=== PATIENT | male | born 1955 | race Caucasian/White ===

== ENCOUNTER → 2018-02-02 12:57 | Outpatient (CLI) | payer OTHER, SELFPAY ==
--- NOTE | 2018-02-02 12:57 | DT_ITS ---
This patient was seen during an EMR downtime January 29, 2018 - February 05, 2018. This patient may have a combination of paper and electronic documentation or all paper documentation. All documentation is viewable within the e-chart portion of [email or web address] for each patient visit.
--- NOTE | 2018-02-02 13:02 | VDLE_ITS ---
Reason For Study: pain RIGHT LEFT CFV is compressible, spontaneous, phasic, GSV is normal. competent and demonstrates normal CFV is compressible, spontaneous, phasic, augmentation. competent, and demonstrates normal Procedure augmentation. Exam performed in department. FV is compressible, spontaneous, phasic, The exam was diagnostic. competent and demonstrates normal A preliminary report was called and/or faxed augmentation. to Dr. Elizabeth Garcia. POP V is compressible, spontaneous, phasic, competent and demonstrates normal augmentation. T/P Trunk is compressible. PTV is compressible. LT PerV is compressible. Interpretation Summary Deep veins of the left lower extremity are patent and compressible segmentally. There is no evidence of left lower extremity deep vein thrombosis. Valvular competence appears intact within the proximal deep venous system on the left . The left greater saphenous vein appears patent and compressible segmentally. Ordering Physician: John Garcia Performed By: Mike Abreu RVRajesh
== END ==
PROVIDERS: Family Provider Family Medicine; PCP Family Medicine; Visit Provider Family Medicine
DX: M79.662 Pain in left lower leg (principal)
CPT/HCPCS: 93971

== ENCOUNTER → 2018-10-15 09:53 | Outpatient (CLI) | payer OTHER, SELFPAY ==
[2018-10-15 13:09] LABS: Anion Gap 7 (5-15); BUN 22 mg/dL (7-18); BUN/Creat Ratio 20.2 RATIO (10-20); Calcium,Total 8.7 mg/dL (8.5-10.1); Chloride 111 mmol/L (98-107); Cholesterol 207 mg/dL (200); Creatinine, Serum 1.09 mg/dL (0.70-1.30); EST Glomerular Filtration Rate 73 mL/min (>60); Est Glom Filt Rate - Afr Amer 88 mL/min (>60); Glucose 105 mg/dL (74-106); High Density Lipoprotein 35 mg/dL; PSA,Total - Annual Screen 2.13 ng/mL (0.00-4.00); Potassium 3.6 mmol/L (3.5-5.1); Sodium Level 141 mmol/L (136-145); Triglycerides 168 mg/dL; Very Low Density Lipoprotein 34 mg/dL (5-40)
== END ==
PROVIDERS: Family Provider Family Medicine; PCP Family Medicine; Referring Provider Family Medicine; Visit Provider Family Medicine
DX: Z13.1 Encounter for screening for diabetes mellitus (principal); Z12.5 Encounter for screening for malignant neoplasm of prostate; Z13.220 Encounter for screening for lipoid disorders
CPT/HCPCS: 36415; 80048; 80061; 84153; G0103

== ENCOUNTER → 2018-11-08 11:19 | Outpatient (CLI) | payer OTHER, SELFPAY ==
--- NOTE | 2018-11-08 14:07 | STRESSREP ---
Stress Test Report Exercise stress test. 63-year-old man with a history of chest pain. Stress protocol: Resting EKG demonstrates sinus bradycardia with a rate of 49 bpm normal intervals are noted. The patient exercised according to regular Cj protocol for total duration of 12 minutes completing stage IV of the Jc protocol the maximum heart rate attained was 150 bpm which was 95% of the maximum predicted heart rate the maximum workload was 13.7 metabolic equivalents. The patient maintained sinus rhythm throughout the recording. At rest and during peak exercise there were no ST or T wave changes noted to suggest ischemia. No clinical angina was noted. The resting blood pressure was 128/90 mmHg with a peak blood pressure 170/78 mmHg. The rate pressure product was 25,100. Conclusion: Exercise stress test with no EKG criteria for ischemia at a high workload Excellent functional capacity. No arrhythmias noted.
== END ==
PROVIDERS: Family Provider Family Medicine; PCP Family Medicine; Referring Provider Family Medicine; Visit Provider Family Medicine
DX: R07.89 Other chest pain (principal)
CPT/HCPCS: 93017

== ENCOUNTER 2020-03-07 11:55 | Emergency (ER) | payer OTHER, SELFPAY ==
[2020-03-07 11:57] VITALS: BP 129/87; PULSE 74; RESP 16; TEMP 37.1; O2SAT 91; BMI 29.7
--- NOTE | 2020-03-07 12:15 | RAD_ITS ---
STUDY: X-RAY CHEST REASON FOR EXAM: Male, 64 years old. Left side rib/chest pain TECHNIQUE: Single AP portable view of the chest. COMPARISON: None. FINDINGS: The lungs are underexpanded. Interstitial markings are minimally prominent in the lung bases. There is no demonstrated pleural abnormality. There is mild cardiac enlargement. Normal mediastinum and tracy. Normal visualized pulmonary arteries. Normal visualized aortic arch and descending thoracic aorta. There are diffuse degenerative changes of the visualized thoracic spine. Normal visualized ribs, clavicles, and shoulders. There is no demonstrated abnormality of the visualized soft tissue structures of the upper abdomen. RAD/Chest 1 View (Portable) IMPRESSION: Minimal lower lobe atelectasis, mild cardiomegaly underexpansion of the lungs. Electronically Signed: Sarahi Hedrick MD at 13:03 EDT Tel , Service support ,
--- NOTE | 2020-03-07 12:15 | EKG12_ITS ---
Test Reason : Blood Pressure : / mmHG Vent. Rate : 068 BPM Atrial Rate : 068 BPM P-R Int : 192 ms QRS Dur : 098 ms QT Int : 402 ms P-R-T Axes : 029 -06 001 degrees QTc Int : 427 ms Normal sinus rhythm Normal ECG Confirmed by CARLO CONNORS, AKI ([id number]), legal editor VETO ACE ([id number]) on 03/09/2020 1:05:34 PM Referred By: Confirmed By:AKI MATOS MD
[2020-03-07 12:24] LABS: Absolute Lymphocyte Count 1.71 X10^3/uL (0.83-4.51); Absolute Neutrophil Count 7.5 X10^3/uL (2.0-7.7); Basophil# 0.03 X10^3/uL; Basophil% 0.3 % (0-1); Eosinophil# 0.03 X10^3/uL; Eosinophils% 0.3 % (0-5); Hematocrit 47.1 % (40-54); Hemoglobin 15.6 g/dL (13.0-16.5); Lymphocyte # 1.71 X10^3/ul (4.0); Lymphocyte % 16.4 % (19-41); Mean Corp Hgb Conc 33.1 g/dL (32-36); Mean Corpuscular Hgb 30.4 pg (27.0-32.0); Mean Corpuscular Volume 91.8 fL (80-94); Mean Platelet Vol. 9.4 fl (6.2-12.0); Monocyte# 1.09 X10^3/uL; Monocyte% 10.4 % (0-10); NRBC Flagged by Analyzer 0 % (0-5); Neutrophil % 71.8 % (47-70); Platelet Count 251 K/mm3 (150-450); RBC Distribution Width CV 12.4 % (11.6-14.6); RBC Distribution Width SD 40.9 fl (35.1-43.9); Red Blood Count 5.13 M/mm3 (4.6-6.2); White Blood Count 10.4 K/mm3 (4.4-11.0)
--- NOTE | 2020-03-07 12:42 | ED.DCSUM_ITS ---
- ER Visit Summary Date of Service: 03/07/20 Chief Complaint: Left lower chest pain History of Present Illness: The patient is a [address] Guadarrama. No personal history of DVT. Does have a family history of a DVT. Reports that over the February 28 he went on a 5-hour car ride to [place]. He denies ankle swelling or calf pain. Patient reports that he has pain in the lower left chest and left flank that began yesterday. Is gradually gotten worse. Is a sharp, aching pain is 7-10 at worst and 5-10 currently. Is worsened by laying down. Is relieved by sitting or standing. Reports that his left shoulder was aching all night as well. He states that that felt as though he had slept on it wrong. States that it was increased with movement. Patient also complains of subjective fever. He denies any shortness of breath or cough. No nausea, vomiting, or diarrhea. No dysuria, frequency, or hematuria. Physical Examination: Vitals: Stable. Afebrile. General: Well-nourished and well-developed. Head: Normocephalic atraumatic. Neck: Supple, no lymphadenopathy. No JVD. Nontender. Cardiovascular: Regular rate and rhythm. No murmurs. Respiratory: No respiratory distress. Clear to auscultation bilaterally. Abdominal: Soft, nontender, nondistended, normal bowel sounds. No guarding, rebound, or peritoneal signs. Back: Nontender. Extremities: Nontender, no edema. Skin: Normal color, no rash. Neurologic: Alert and oriented ?3. Cranial nerves II through XII are intact. Normal strength and sensation. Psych: Normal affect. Test Results: EKG is sinus at 68 with a Q wave in a T wave inversion in lead III. There is no old EKG for comparison. CBC shows segmented for 70, and lymphocytes of 16. Chem-7 shows a potassium of 3.3 and glucose of 124. LFTs show total bili of 1.2, alk phos 125. Lipase is 65. Troponin is negative. C OVID is negative. Clinical Impression(s) from Imaging Studies Chest X-Ray 03/07/20 12:15 IMPRESSION: Minimal lower lobe atelectasis, mild cardiomegaly underexpansion of the lungs. Electronically Signed: Sarahi Hedrick MD at 13:03 EDT Tel , Service support , Chest CTA 03/07/20 13:04 IMPRESSION: 1. No central or segmental pulmonary embolism. 2. Left more than right basilar atelectasis. Given asymmetry, a left basilar pneumonitis is also possible. Electronically Signed: Ananth Herrera MD ([place]) at 14:23 EDT , Service support , Emergency Department Course and Treatment: Patient had an IV placed. Is given Toradol, morphine and Zofran IV. He is resting more comfortably. He was also given an incentive spirometer. Treatment Plan: Patient is instructed to clean his CPAP. Patient will be discharged with instructions to follow-up with Dr. Rojas in a week if not improving. Return to the emergency department for any worsening symptoms. Disposition: To home in improved and stable condition. Impression: 1. Pneumonitis left lower lobe. 2. Atelectasis. 3. Obstructive sleep apnea on CPAP. This note was generated with [employer] dictation software. It may contain incorrect words, spelling, and punctuation that were not noted in review of the chart prior to signing ED Disposition - Plan for ED Patient: Instructions: ED Atelectasis Prescriptions: Naproxen [Naprosyn] 500 mg PO BID #20 tab Prescription Printed Referrals: Jc Rojas MD [STAFF PHYSICIAN] - 1 Week if not improving John Guadarrama MD [Primary Care Provider] - 3-5 Days
[2020-03-07] MEDS: Morphine 4 MG/ML Syringe IV ×2 (12:44→14:04)
[2020-03-07] MEDS: 0.9% Normal Saline 1,000 ML 1000 ML IV (12:44)
[2020-03-07] MEDS: Ondansetron 4 MG/2 ML Vial IV (12:45)
[2020-03-07 13:03] LABS: D-Dimer Quantitative (DVT/PE) 0.87 FEU/ug/m (0.27-0.49)
--- NOTE | 2020-03-07 13:04 | CT_ITS ---
STUDY: CTA CHEST REASON FOR EXAM: Male, 64 years old. PT STATED LEFT SIDE RIB PAIN RADIATION DOSAGE (If Supplied By Facility): CTDIvol = ( 14.92 ) mGy, DLP = ( 537.50 ) mGycm TECHNIQUE: The examination was performed with the intravenous administration of 100ML ISOVUE 370. Post-processing of the angiographic images was performed, with multiplanar reformation and 3D reconstruction. Individualized dose optimization techniques were used for this CT. COMPARISON: None. FINDINGS: Normal enhancement of the main pulmonary artery and right and left pulmonary arteries. Normal enhancement of the bilateral peripheral pulmonary arteries. There is no demonstrated pulmonary embolism. There is atherosclerotic calcification of the aortic arch with tortuosity. Pulmonary vascular There is no demonstrated aortic dissection. Normal heart and pericardium. Normal mediastinum. Normal hilar regions. Normal visualized trachea and bronchi. The lungs are under expanded. There are bandlike parenchymal changes most consistent with atelectasis of the bilateral lungs, left more than right. Normal pleura. Normal chest wall structures. Normal osseous structures. There is a small hiatal hernia. CT/CTA Chest W/WO Contrast IMPRESSION: 1. No central or segmental pulmonary embolism. 2. Left more than right basilar atelectasis. Given asymmetry, a left basilar pneumonitis is also possible. Electronically Signed: Ananth Herrera MD ([place]) at 14:23 EDT , Service support ,
[2020-03-07 13:38] LABS: ALB/GLOB Ratio 0.8 RATIO (0.9-2.4); AST(SGOT) 19 U/L (15-37); Alanine Aminotransfer ALT/SGPT 30 U/L (16-61); Albumin, Serum 3.4 g/dL (3.2-5.0); Alkaline Phosphatase 125 U/L (45-117); Anion Gap 7 (5-15); BUN 16 mg/dL (7-18); BUN/Creat Ratio 13.7 RATIO (10-20); Calcium,Total 8.6 mg/dL (8.5-10.1); Chloride 106 mmol/L (98-107); Creatinine, Serum 1.17 mg/dL (0.70-1.30); EST Glomerular Filtration Rate 67 mL/min (>60); Est Glom Filt Rate - Afr Amer 81 mL/min (>60); Estimated Creatinine Clearance 72.08 ml/min; Globulin 4.2 g/dL (2.2-4.2); Glucose 124 mg/dL (74-106); Lipase 65 U/L (73-393); Potassium 3.3 mmol/L (3.5-5.1); Protein, Total 7.6 g/dL (6.4-8.2); Sodium Level 140 mmol/L (136-145)
[2020-03-07 14:00] VITALS: BP 130/85; PULSE 67; RESP 16; O2SAT 92
[2020-03-07] MEDS: Ketorolac 15 MG/ML Vial IV (14:55)
[2020-03-07 16:06] LABS: Probe Check PASS; Specimen Processing Control PASS
[2020-03-07 16:27] VITALS: BP 121/77; PULSE 68; RESP 16; O2SAT 97
== END 2020-03-07 16:32 | disposition home or self-care (01) ==
LOC: ED 12:54
PROVIDERS: Emergency Provider Emergency Medicine; PCP Family Medicine
DX: J18.9 Pneumonia, unspecified organism (principal); J98.11 Atelectasis; G47.33 Obstructive sleep apnea (adult) (pediatric); I10 Essential (primary) hypertension; R10.9 Unspecified abdominal pain; R51 Headache; Z79.899 Other long term (current) drug therapy
CPT/HCPCS: 71045; 71275; 80053; 83690; 84484; 85025; 85379; 87635; 93005; 96361; 96374; 96375; 96376; 99285; G2023; J7030; Q9967; A4216; J2405; U0003

== ENCOUNTER → 2020-04-22 08:44 | Outpatient (CLI) | payer OTHER, SELFPAY ==
[2020-04-22 10:33] LABS: ALB/GLOB Ratio 0.9 RATIO (0.9-2.4); AST(SGOT) 22 U/L (15-37); Alanine Aminotransfer ALT/SGPT 33 U/L (16-61); Albumin, Serum 3.5 g/dL (3.2-5.0); Alkaline Phosphatase 102 U/L (45-117); Anion Gap 4 (5-15); BUN 23 mg/dL (7-18); BUN/Creat Ratio 21.1 RATIO (10-20); Calcium,Total 8.8 mg/dL (8.5-10.1); Chloride 108 mmol/L (98-107); Cholesterol 202 mg/dL (200); Creatinine, Serum 1.09 mg/dL (0.70-1.30); EST Glomerular Filtration Rate 72 mL/min (>60); Est Glom Filt Rate - Afr Amer 87 mL/min (>60); Glucose 109 mg/dL (74-106); High Density Lipoprotein 36 mg/dL; PSA,Total - Annual Screen 2.57 ng/mL (0.00-4.00); Potassium 3.7 mmol/L (3.5-5.1); Protein, Total 7.5 g/dL (6.4-8.2); Sodium Level 140 mmol/L (136-145); Triglycerides 163 mg/dL; Very Low Density Lipoprotein 33 mg/dL (5-40)
== END ==
PROVIDERS: PCP Family Medicine; Referring Provider Family Medicine; Visit Provider Family Medicine
DX: I10 Essential (primary) hypertension (principal); Z12.5 Encounter for screening for malignant neoplasm of prostate
CPT/HCPCS: 36415; 80053; 80061; 84153; G0103

== ENCOUNTER 2020-10-29 06:49 | Outpatient (RCR) | payer OTHER, SELFPAY ==
[2020-05-05 07:00] VITALS: BMI 29.7
[2020-10-29] MEDS: COVID-19 VACC, MRNA(PFIZER)/PF 30 MCG/0.3 ML SYRINGE IM (14:05)
[2020-11-19] MEDS: COVID-19 VACC, MRNA(PFIZER)/PF 30 MCG/0.3 ML SYRINGE IM (13:46)
== END 2021-02-02 23:59 ==
LOC: IMMUN 06:49
PROVIDERS: PCP Family Medicine; Referring Provider Family Medicine; Visit Provider Family Medicine
DX: Z23 Encounter for immunization (principal)
CPT/HCPCS: 0001A; 0002A; 91300

== ENCOUNTER → 2020-12-07 08:27 | Outpatient (CLI) | payer OTHER, SELFPAY ==
[2020-05-05 07:00] VITALS: BMI 29.7
--- NOTE | 2020-12-07 08:32 | RAD_ITS ---
STUDY: X-RAY - ESOPHAGUS (BARIUM SWALLOW) WITH FLUOROSCOPY REASON FOR EXAM: Male, 65 years old. DYSPHAGIA TECHNIQUE: 13 view(s) of the esophagus were obtained following swallowing of barium. FLUOROSCOPY TIME (if supplied): (35 seconds) minutes/seconds COMPARISON: None. FINDINGS: There is no demonstrated esophageal foreign body. There is no demonstrated stricture or mucosal abnormality. Normal gastroesophageal junction, without a demonstrated hiatal hernia. There is evidence of a paraesophageal hernia. The patient ingested a 12 mm tablet of barium. The tablet is trapped at the gastroesophageal junction. Normal visualized aortic arch and descending thoracic aorta. Normal visualized pulmonary parenchyma. Normal visualized osseous structures of the thorax. RAD/Esophagus Dual Contrast IMPRESSION: Paraesophageal hernia. The ingested 12 mm tablet of barium is trapped at the gastroesophageal junction. Electronically Signed: Ivan Eduardo MD at 13:51 EDT , Service support ,
== END ==
PROVIDERS: PCP Family Medicine; Referring Provider Internal Medicine Gastroenterology; Visit Provider Internal Medicine Gastroenterology
DX: R13.10 Dysphagia, unspecified (principal)
CPT/HCPCS: 74221

== ENCOUNTER → 2020-12-28 16:21 | Outpatient (CLI) | payer OTHER, SELFPAY ==
[2020-05-05 07:00] VITALS: BMI 29.7
== END ==
PROVIDERS: PCP Family Medicine; Referring Provider Internal Medicine Gastroenterology; Visit Provider Internal Medicine Gastroenterology
DX: Z11.59 Encounter for screening for other viral diseases (principal)
CPT/HCPCS: 87635; C9803; U0002

== ENCOUNTER → 2021-05-22 09:20 | Outpatient (CLI) | payer OTHER, SELFPAY ==
[2021-05-22 09:36] LABS: Absolute Lymphocyte Count 1.78 X10^3/uL (0.83-4.51); Absolute Neutrophil Count 3.1 X10^3/uL (2.0-7.7); Basophil# 0.05 X10^3/uL; Basophil% 0.9 % (0-1); Eosinophil# 0.08 X10^3/uL; Eosinophils% 1.4 % (0-5); Hematocrit 46.9 % (40-54); Hemoglobin 15.3 g/dL (13.0-16.5); Lymphocyte # 1.78 X10^3/ul (0.83-4.51); Lymphocyte % 31.8 % (19-41); Mean Corp Hgb Conc 32.6 g/dL (32-36); Mean Corpuscular Hgb 29.6 pg (27.0-32.0); Mean Corpuscular Volume 90.7 fL (80-94); Mean Platelet Vol. 9.2 fl (6.2-12.0); Monocyte# 0.61 X10^3/uL; Monocyte% 10.9 % (0-10); NRBC Flagged by Analyzer 0 % (0-5); Neutrophil # 3.05 X10^3/uL (2.7-7.7); Neutrophil % 54.6 % (47-70); Platelet Count 246 K/mm3 (150-450); RBC Distribution Width CV 12.8 % (11.6-14.6); RBC Distribution Width SD 42.5 fl (35.1-43.9); Red Blood Count 5.17 M/mm3 (4.6-6.2); White Blood Count 5.6 K/mm3 (4.4-11.0)
[2021-05-22 10:01] LABS: ALB/GLOB Ratio 0.8 RATIO (0.9-2.4); AST(SGOT) 24 U/L (15-37); Alanine Aminotransfer ALT/SGPT 41 U/L (16-61); Albumin, Serum 3.4 g/dL (3.2-5.0); Alkaline Phosphatase 117 U/L (45-117); Anion Gap 4 (5-15); BUN 20 mg/dL (7-18); BUN/Creat Ratio 19.8 RATIO (10-20); Calcium,Total 8.8 mg/dL (8.5-10.1); Chloride 108 mmol/L (98-107); Cholesterol 196 mg/dL (200); Creatinine, Serum 1.01 mg/dL (0.70-1.30); EST Glomerular Filtration Rate 79 mL/min (>60); Est Glom Filt Rate - Afr Amer 95 mL/min (>60); Globulin 4.2 g/dL (2.2-4.2); Glucose 101 mg/dL (74-106); High Density Lipoprotein 41 mg/dL; PSA,Total - Annual Screen 2.65 ng/mL (0.00-4.00); Potassium 3.8 mmol/L (3.5-5.1); Protein, Total 7.6 g/dL (6.4-8.2); Sodium Level 139 mmol/L (136-145); Triglycerides 146 mg/dL; Very Low Density Lipoprotein 29 mg/dL (5-40)
== END ==
PROVIDERS: PCP Family Medicine; Referring Provider Family Medicine; Visit Provider Family Medicine
DX: E78.00 Pure hypercholesterolemia, unspecified (principal); Z12.5 Encounter for screening for malignant neoplasm of prostate
CPT/HCPCS: 36415; 80053; 80061; 84153; 85025; G0103

== ENCOUNTER → 2021-06-09 07:25 | Outpatient (CLI) | payer OTHER, SELFPAY ==
--- NOTE | 2021-06-09 07:29 | ECHOD_ITS ---
Reason For Study: Arrhythmia Procedure This was a 2D Doppler, Color Flow transthoracic echocardiogram. Exam performed in department. Left Ventricle Normal LV size. Left ventricular systolic function is normal. The estimated ejection fraction is 60 %. Stage 1 diastolic dysfunction. No regional wall motion abnormalities noted. Right Ventricle Normal RV size. Normal systolic function. Atria Normal left atrium. Normal right atrium. Mitral Valve Mild focal mitral valve calcification. Mild (1+) eccentric mitral valve insufficiency. Tricuspid Valve Normal tricuspid valve. Mild tricuspid valve insufficiency. Pulmonary artery systolic pressure is 26 mmHg. Aortic Valve Trisinus/trileaflet aortic valve. Mild (1+) aortic valve insufficiency. Pulmonic Valve Normal pulmonic valve. Great Vessels Mild to moderately dilated aortic root. The pulmonary artery is normal size. Normal inferior vena cava. Pericardium/Pleural No pericardial effusion. MMode/2D Measurements & Calculations LVIDd: 4.7 cm IVSd: 1.1 cm Ao root diam: 4.6 cm LVIDs: 2.5 cm LVPWd: 0.91 cm RVDd: 3.4 cm FS: 47.0 % LAV(MOD-bp): 75.1 ml LVAd ap4: 35.4 cm2 LVAd ap2: 33.7 cm2 LAV(MOD-bp) Indexed: 33.2 ml/m2 LVLd ap4: 8.7 cm LVLd ap2: 8.5 cm LAV(MOD-sp2): 79.2 ml EDV(MOD-sp4): 116.5 ml EDV(MOD-sp2): 108.9 ml LAV(MOD-sp4): 59.4 ml EDV(sp4-el): 122.1 ml EDV(sp2-el): 112.4 ml LVAs ap4: 20.5 cm2 LVAs ap2: 21.0 cm2 LVLs ap4: 7.5 cm LVLs ap2: 7.7 cm ESV(MOD-sp4): 46.8 ml ESV(MOD-sp2): 48.7 ml ESV(sp4-el): 47.6 ml ESV(sp2-el): 48.4 ml EF(MOD-sp4): 59.8 % EF(MOD-sp2): 55.3 % EF(sp4-el): 61.1 % SV(MOD-sp4): 69.7 ml SV(MOD-sp2): 60.2 ml SV(sp4-el): 74.6 ml LA dimension(2D): 3.5 cm LA A4 area: 21.7 cm2 RA A4 area: 21.3 cm2 Doppler Measurements & Calculations MV E max geraldo: 69.5 cm/sec Lat Peak E' Geraldo: 11.0 cm/sec Med Peak E' Geraldo: 6.9 cm/sec MV A max geraldo: 76.7 cm/sec E/E' lat: 6.3 E/E' med: 10.1 MV E/A: 0.91 Ao V2 max: 131.9 cm/sec AI max geraldo: 407.9 cm/sec LV V1 max: 100.3 cm/sec Ao max P.0 mmHg AI max P.6 mmHg LV V1 max P.0 mmHg AI dec slope: 152.0 cm/sec2 AI P1/2t: 786.0 msec PA V2 max: 77.5 cm/sec TR max geraldo: 240.9 cm/sec TR max P.3 mmHg ECHO/Echo Complete Interpretation Summary Normal LV size. Left ventricular systolic function is normal. The estimated ejection fraction is 60 %. Mild to moderately dilated aortic root. Mild (1+) aortic valve insufficiency. Pulmonary artery systolic pressure is 26 mmHg. Stage 1 diastolic dysfunction. Ordering Physician: Jim Crystal Referring Physician: John Guadarrama Performed By: Irena Chong RDCS
== END ==
PROVIDERS: PCP Family Medicine; Referring Provider Internal Medicine Cardiovascular Disease; Visit Provider Internal Medicine Cardiovascular Disease
DX: R06.00 Dyspnea, unspecified (principal); R55 Syncope and collapse; I49.9 Cardiac arrhythmia, unspecified; I10 Essential (primary) hypertension
CPT/HCPCS: 93306

== ENCOUNTER 2021-06-14 05:59 | Day surgery (SDC) | payer OTHER, SELFPAY ==
[2021-06-14] VITALS (10 sets, daily range): BP systolic 123–152; BP diastolic 77–94; PULSE 56–86; RESP 16–18; TEMP 36–37; O2SAT 93–100; BMI 30.9
[2021-06-14] MEDS: Lactated Ringers 1,000 ML 100 ML IV ×2 (06:59→09:05)
--- NOTE | 2021-06-14 07:02 | HP.PCM_ITS ---
History and Physical Date of Admission: 06/14/21 Visit Reasons: Hernia Chief Complaint: hernia x2 Crossbar Switch Adjuster Required: No Is patient in pain?: No Allergies lisinopril Adverse Reaction (Mild, Verified 04/30/21 07:55) cough Medications hydrochlorothiazide 25 mg PO DAILY 03/07/20 [History Confirmed 04/30/21] losartan 25 mg tablet 25 mg PO DAILY 05/05/20 [History Confirmed 04/30/21] tamsulosin 0.4 mg capsule 0.4 mg PO DAILY #30 cap 04/30/21 [Rx Confirmed 04/30/21] [facility] Medical History (Updated 04/30/21 @ 08:[address] Obdulio No MD) GERD (gastroesophageal reflux disease) Hemorrhoid Hernia HTN (hypertension) SHAUNA (obstructive sleep apnea) Surgical History (Updated 04/30/21 @ 07:57 by Edelmira Hutton) History of colonoscopy (~11/2020) History of tonsillectomy Family History (Updated 04/30/21 @ 07:57 by Edelmira Hutton) Daughter Asthma Father Cancer prostate Diabetes Mother Aortic aneurysm Social History (Updated 05/05/20 @ 14:[address] Johnathan Barrientos, DO) Smoking Status: Never smoker HPI HPI HPI: MIKE MILLER, is a 66 M who presents to the office today for surgical consultation regarding a suspected left inguinal hernia as well as an umbilical hernia. The patient is referred by Dr. John Guadarrama and a written copy of my surgical consult recommendations will return to him. The patient has noted progressive bulging of the left groin area. Also has a protruding umbilical area. Chronic medical problems include hypertension and obstructive sleep apnea. Medications only include hydrochlorothiazide and losartan. He does enjoy playing golf and plans to have some outings in May. He has nocturia reasonably frequently. He has never had any occasion however where the left groin hernia was not reducible. He has had no previous abdominal surgery. He otherwise remains in good health. He has avoided COVID-19. He has been vaccinated. Exam Const General: cooperative, healthy appearing, comfortable and no acute distress Nutritional Appearance: overweight Orientation: alert and awake [facility] Head: normal to inspection Ears: hearing grossly normal bilaterally Eyes General: appearance normal, both eyes and all related structures Chest Chest palpation & inspection: normal inspection of the chest Resp Effort & Inspection: normal respiratory effort Auscultation: clear to auscultation bilaterally Cardio Rate: regular rate Rhythm: regular rhythm GI Palpation: soft Other: Notable umbilical hernia, reducible, defect proximal 1.5 cm diameter Other: Testicles are descended, slight give on the right, obvious left inguinal hernia still reducible Musc Cervical Spine: normal cervical lordosis Neuro General: patient alert and patient awake Extrem General: no calf tenderness Psych Appearance: grossly normal Thought Process: normal Assessment and Plan Assessment and Plan (1) Hernia: (2) GERD (gastroesophageal reflux disease): Status: Acute Qualifiers: Esophagitis presence: with esophagitis Esophagitis bleeding: without hemorrhage Qualified Code(s): K21.00 - Gastro-esophageal reflux disease with esophagitis, without bleeding (3) Inguinal hernia of left side without obstruction or gangrene: Status: Acute (4) Umbilical hernia without obstruction or gangrene: Status: Acute Plan - Dr. Obdulio No MD: Patient gives history November 2020 if upper endoscopy done by Dr. Donta Sunshine with esophageal dilatation. Ostensibly for a distal esophageal stricture. Patient had had a barium swallow with a barium tablet that would not pass. The patient however was not prescribed any type of reflux medication. The patient rarely senses reflux. I recommended to however that he initiate famotidine therapy 20 mg daily or twice daily. This will be important for anesthesiology. It is of additional note that the patient does use CPAP therapy. He thinks that this possibly is helped with some of his esophageal issues as well. Judge Miller has an obvious left inguinal hernia. Is still reducible. He has a obvious umbilical hernia. I propose for him a laparoscopic left inguinal herniorrhaphy with mesh and umbilical herniorrhaphy with mesh and we have discussed technique, benefit, risk and alternatives. I did suggest to him that I would inspect the right groin as well and if an obvious defect was identified prior to any peritoneal dissection then we would consider a right repair at the same setting. He has had an opportunity to ask and have questions answered. He would like to schedule in May. He has a degree of nocturia and likely a degree of urinary outlet obstruction. I recommend that we initiate Flomax 0.4 mg nightly and would initiate that at least 2 weeks preoperatively. He is aware of the potential postoperative ur inary retention. I very much appreciate the kind opportunity of assisting with his surgical care. We will schedule and proceed at his discretion. Copy: Dr. John No M.D., F.A.C.S. I have re-examined the patient. There are no clinical changes since date of exam.
--- NOTE | 2021-06-14 07:22 | EX.PCM.DISCH ---
Discharge Instructions Procedure General Surgery Diet Discharge Diet: Light diet - advance as tolerated (if you have questions about your diet instructions, please talk to you doctor.) Activity Discharge Activity: May Not Drive (for 3-5 days or while taking narcotic pain medicine.) May shower in (days): 1 Lifting Restrictions: 10 pounds Dressing / Incision Call your doctor if your incision/area has: Continuous Slow Oozing, Sudden Increased Bleeding, Increased Pain/ Swelling, Increased Redness and Foul Smelling Discharge Call your doctor if you observe: Fever of 101 or Higher Suture Line Care: Avoid Pulling/Pushing and Avoid Pinching/Bending Additional Dressing/Incision Instructions:: Change or remove dressing in 4 days. Leave steri-strips in place for 1 week. Follow Up Care Please Follow Up With: Obdulio No MD When: Call [phone] to make an appointment to be seen in about 10 days. Test Results: Test results from this visit will be discussed in further detail at your follow-up appointment, if applicable. Discharge Plan Admission Attending Provider: Obdulio No Primary Care Provider: Gopal Cruz Discharge Orders/Prescriptions Prescriptions: No Action pantoprazole 40 mg tablet,delayed release (DR/EC) 40 mg PO DAILY RF: 0 losartan 50 mg tablet 50 mg PO DAILY RF: 0 tamsulosin [Flomax] 0.4 mg capsule 0.4 mg PO QHS RF: 0
[2021-06-14] MEDS: Cefazolin 2 GM in 0.9% Normal Saline 100 ML IV (07:28)
--- NOTE | 2021-06-14 07:30 | HERN_PTH ---
PATIENT: MIKE MILLER LOC: [facility] U#:[id number] AGE/SX: 66/M ROOM: RE06/14/[address]: Dr. Obdulio No MD : [id number] BED: DIS: 06/14/2021 SPEC #: [id number] RECD: 06/14/21 09:27 STATUS: JENNY REJuan Jose #: [id number] SEN: 06/14/21 07:[address]: Obdulio No DEPT: SURGICAL PATHOLOGY RECD BY: Kacey Meneses ENTERED: 06/14/21 13:16 SP TYPE: Hernia OTHR DR: Dr. Gopal Cruz MD Tissues: HERNIA Procedures: Surgery Specimen Level II HEADER OPERATION: Laparoscopic inguinal hernia repair with mesh PRE-OP DIAGNOSIS: Left inguinal hernia without obstruction or gangrene TISSUE SUBMITTED: Umbilical sac and contents MICROSCOPIC DIAGNOSIS Umbilical hernia sac and contents: A piece of fibroadipose tissue, clinically umbilical hernia sac and contents. SJ:juan 06/15/2021 MICROSCOPIC DESCRIPTION Slides are reviewed. GROSS DESCRIPTION Received in fixative is one container labeled with the patient's name and designated umbilical sac and contents. The specimen consists of an irregular fragment of pink-yellow soft tissue measuring 2.5 x 1 x 0.7 cm. The specimen is sectioned and totally submitted in one cassette. / AM:juan 06/14/21 TC:5 [facility]: [id number]
--- NOTE | 2021-06-14 08:59 | PCM.OPRPT ---
Problems Associated Problem List Diagnoses (1) Inguinal hernia of left side without obstruction or gangrene: (2) Umbilical hernia without obstruction or gangrene: Report of Operation Date of Procedure: 06/14/21 Pre-Operative Diagnosis: Umbilical hernia, left inguinal hernia Post-Operative Diagnosis: Umbilical hernia, indirect left groin hernia with large left cord lipoma Surgery/Procedure Performed:: Laparoscopic left inguinal herniorrhaphy with extra-large Bard 3D max mesh, umbilical herniorrhaphy with 6.4 cm Ventralex mesh Bard 3D max extra-large left lot [id number], reference [id number], expiry date 05/25/2025 Secure strap Lot number [id number], expiry date July [address] hernia patch lot number [id number], reference [id number], expiry date 12/23/2022 Description of Surgical Findings:: Timeout informed consent was obtained. 66-year-old gentleman was taken to the operating place supine on the table underwent general tracheal intubation esthesia. The abdomen was sterilely prepped and draped. Ancef 2 g were given intravenously. 0.5% Marcaine was used as a local anesthetic. Throughout the procedure total 30 cc was used. Skin sites were preanesthetized. A curvilinear incision was made in the inferior portion of the umbilicus. Sharp dissection performed identifying a 1.5 cm diameter umbilical hernia with preperitoneal fat. This was dissected free. Holding sutures of 0 Vicryl placed. 10 mm trocar inserted. 10 mm laparoscope inserted. No concern for other injuries. The right groin was inspected I did not see a definitive hernial defect. The left groin had a definitive indirect defect. 5 mm ports were placed in the right left lower quadrants. Under laparoscopic control a ilioinguinal nerve block was performed on the left. The peritoneum was then incised carried medially. The peritoneum was dissected free. Very large cord lipoma was identified. This was dissected free and inverted.. Blunt dissection with direct indirect and femoral areas were completely dissected free. A Bard 3D max left extra-large mesh was placed was to cover the direct indirect and femoral area. I felt that he had excellent securement. I had the cord lipoma completely retracted. The mesh was secured in place laterally superiorly and medially with secure strap. I then placed the cord lipoma on the anterior side of the mesh reapproximated the peritoneum with secure strap. Complete obliteration of the mesh was achieved. The abdomen was allowed to deflate through an antiviral valve. The fascia at the umbilicus was quite thin. I tried to dissect free the peritoneal lining but it was very thin was not possible. I placed a 6.4 cm Ventralex mesh secured the tails with interrupted 0 Nurolon and approximated the fascia transversely with the same incorporating the mesh with each stitch. I then reinsufflated the abdomen and the mesh was in perfect position. Made sure that the greater omentum was overlying the small bowel. The abdomen was again allowed to deflate through an antiviral valve. I had to excise some excess skin at the umbilicus with the hernia now repaired. I then approximated the skin there would be opted for Monocryl. The 2 distal port sites were closed with the same. Skin edges approximated with surgical glue. Telfa OpSite dressings applied. Sponge and instrument and needle counts were reported to the surgeon to be correct. Specimen umbilical hernia sac contents. Drains none. Blood loss minimal. The patient was taken to the recovery area in satisfactory addition without apparent complication. Obdulio No M.D., F.A.C.S. Surgeon: Obdulio No Type of Anesthesia: General and Local Anesthesiologist: Iveth Rosenthal
== END 2021-06-14 12:31 | disposition home or self-care (01) ==
LOC: SDC 06:01 → AC 06:02
PROVIDERS: PCP Family Medicine; Referring Provider Surgery; Visit Provider Surgery
PROC: (CPT 49650; principal; 2021-06-14 07:10)
PROC: (CPT 49585; 2021-06-14 07:10)
DX: K40.90 Unilateral inguinal hernia, without obstruction or gangrene, not specified as recurrent (principal); K42.9 Umbilical hernia without obstruction or gangrene; D17.6 Benign lipomatous neoplasm of spermatic cord; I10 Essential (primary) hypertension; G47.33 Obstructive sleep apnea (adult) (pediatric); R35.1 Nocturia; K21.01 Gastro-esophageal reflux disease with esophagitis, with bleeding; E66.3 Overweight; Z68.31 Body mass index [BMI] 31.0-31.9, adult; Z79.899 Other long term (current) drug therapy
CPT/HCPCS: 00840; 49585; 49650; 88302; C1781; J7120; J2405

== ENCOUNTER → 2021-07-15 15:30 | Outpatient (CLI) | payer OTHER, SELFPAY ==
[2021-07-15 17:41] LABS: Absolute Lymphocyte Count 1.46 X10^3/uL (0.83-4.51); Absolute Neutrophil Count 4.1 X10^3/uL (2.0-7.7); Basophil# 0.04 X10^3/uL; Basophil% 0.7 % (0-1); Eosinophil# 0.04 X10^3/uL; Eosinophils% 0.7 % (0-5); Hematocrit 44.8 % (40-54); Hemoglobin 14.6 g/dL (13.0-16.5); Lymphocyte # 1.46 X10^3/ul (0.83-4.51); Lymphocyte % 24.3 % (19-41); Mean Corp Hgb Conc 32.6 g/dL (32-36); Mean Corpuscular Hgb 29.7 pg (27.0-32.0); Mean Corpuscular Volume 91.2 fL (80-94); Mean Platelet Vol. 10.5 fl (6.2-12.0); Monocyte# 0.37 X10^3/uL; Monocyte% 6.2 % (0-10); NRBC Flagged by Analyzer 0 % (0-5); Neutrophil # 4.07 X10^3/uL (2.7-7.7); Neutrophil % 67.6 % (47-70); Platelet Count 260 K/mm3 (150-450); RBC Distribution Width CV 12.8 % (11.6-14.6); RBC Distribution Width SD 42.5 fl (35.1-43.9); Red Blood Count 4.91 M/mm3 (4.6-6.2)
[2021-07-15 18:04] LABS: Hemoglobin A1c 5.5 % (3.8-5.6)
[2021-07-15 18:16] LABS: ALB/GLOB Ratio 0.8 RATIO (0.9-2.4); AST(SGOT) 21 U/L (15-37); Alanine Aminotransfer ALT/SGPT 33 U/L (16-61); Albumin, Serum 3.3 g/dL (3.2-5.0); Alkaline Phosphatase 135 U/L (45-117); Anion Gap 8 (5-15); BUN 21 mg/dL (7-18); BUN/Creat Ratio 18.9 RATIO (10-20); Calcium,Total 8.7 mg/dL (8.5-10.1); Chloride 110 mmol/L (98-107); Cholesterol 172 mg/dL (200); Creatinine, Serum 1.11 mg/dL (0.70-1.30); EST Glomerular Filtration Rate 70 mL/min (>60); Est Glom Filt Rate - Afr Amer 85 mL/min (>60); Globulin 4.2 g/dL (2.2-4.2); Glucose 140 mg/dL (74-106); High Density Lipoprotein 34 mg/dL; Potassium 3.7 mmol/L (3.5-5.1); Protein, Total 7.5 g/dL (6.4-8.2); Sodium Level 142 mmol/L (136-145); Thyroid Stim Hormone (TSH) 1.13 uIU/mL (0.358-3.74); Triglycerides 237 mg/dL; Very Low Density Lipoprotein 47 mg/dL (5-40)
== END ==
PROVIDERS: PCP Family Medicine; Referring Provider Family Medicine; Visit Provider Family Medicine
DX: I10 Essential (primary) hypertension (principal); R73.09 Other abnormal glucose
CPT/HCPCS: 36415; 80053; 80061; 81001; 83036; 84443; 85025

== ENCOUNTER → 2021-07-30 16:46 | Outpatient (CLI) | payer OTHER, SELFPAY ==
--- NOTE | 2021-07-30 16:49 | CT_ITS ---
STUDY: CTA Chest WO/W Contrast Injection 07/30/2021 8:46 PM REASON FOR EXAM: Male, 66 years old. dilated aortic Individualized dose optimization techniques were used for this CT. TECHNIQUE: The examination was performed with the intravenous administration of 100 cc of IV Isovue 370 contrast material. Post-processing of the angiographic images was performed, with axial imaging and 3D reconstruction. MIPS images were obtained. Individualized dose optimization techniques were used for this CT. COMPARISON: 03.07.20. FINDINGS: There are degenerative changes of the shoulders. There is no pneumothorax. There is no demonstrated pleural abnormality. There are calcifications of the coronary arteries. Normal mediastinum. Normal hilar regions. Normal pulmonary arteries. There is atherosclerotic calcification of the aortic arch with tortuosity and elongation of the aortic arch and descending thoracic aorta. There is aneurysmal dilatation of the ascending aorta. The transverse diameter of the ascending aorta measures (in mm): 43. There are multi-level degenerative changes of the thoracic spine. There are no acute findings of the upper abdomen. CT/CTA Chest W/WO Contrast IMPRESSION: No demonstrated pulmonary embolism or arterial dissection. There is aneurysmal dilatation of the ascending aorta. The transverse diameter of the ascending aorta measures (in mm): 43. This is slightly smaller than the prior study. Electronically Signed: Jean Solomon MD at 20:48 EST , Service support ,
== END ==
PROVIDERS: PCP Family Medicine; Referring Provider Internal Medicine Cardiovascular Disease; Visit Provider Internal Medicine Cardiovascular Disease
DX: I77.810 Thoracic aortic ectasia (principal)
CPT/HCPCS: 71275; Q9967

== ENCOUNTER 2021-09-18 09:48 | Outpatient (CLI) | payer OTHER, SELFPAY ==
[2021-09-18 10:30] LABS: Anion Gap 5 (5-15); BUN 24 mg/dL (7-18); BUN/Creat Ratio 21.2 RATIO (10-20); Calcium,Total 9.2 mg/dL (8.5-10.1); Chloride 107 mmol/L (98-107); Creatinine, Serum 1.13 mg/dL (0.70-1.30); EST Glomerular Filtration Rate 69 mL/min (>60); Est Glom Filt Rate - Afr Amer 83 mL/min (>60); Glucose 109 mg/dL (74-106); Potassium 3.5 mmol/L (3.5-5.1); Sodium Level 139 mmol/L (136-145)
== END 2021-09-18 23:59 | disposition short-term general hospital (02) ==
LOC: LAB 09:50
PROVIDERS: PCP Family Medicine; Visit Provider Internal Medicine Cardiovascular Disease
DX: R06.00 Dyspnea, unspecified (principal); I71.2 Thoracic aortic aneurysm, without rupture; I10 Essential (primary) hypertension; K21.00 Gastro-esophageal reflux disease with esophagitis, without bleeding
CPT/HCPCS: 36415; 80048

== ENCOUNTER → 2022-08-08 | Outpatient (CLI) | payer OTHER, SELFPAY ==
--- NOTE | 2022-08-08 15:18 | CT_ITS ---
STUDY: CTA CHEST REASON FOR EXAM: Male, 67 years old. Follow-up thoracic aortic aneurysm RADIATION DOSAGE (If Supplied By Facility): CTDIvol = ( 17.03 ) mGy, DLP = ( 699.58 ) mGycm TECHNIQUE: The examination was performed with the intravenous administration of 100mL Isovue-370. Post-processing of the angiographic images was performed, with multiplanar reformation and 3D reconstruction. Individualized dose optimization techniques were used for this CT. COMPARISON: 07/30/2021 FINDINGS: Normal enhancement of the main pulmonary artery and right and left pulmonary arteries. Normal enhancement of the bilateral peripheral pulmonary arteries. There is no demonstrated pulmonary embolism. Stable aneurysmal dilatation ascending thoracic aorta, maximal transverse diameter 43 mm. There is no demonstrated aortic dissection. Normal heart and pericardium. Normal mediastinum. Normal hilar regions. Normal visualized trachea and bronchi. No infiltrates, consolidations, mass lesions or suspicious nodules. No pleural effusions. Normal chest wall structures. No acute or aggressive osseous abnormality. No acute findings in the upper abdomen. Moderate retrocardiac hiatal hernia present. CT/CTA Chest W/WO Contrast IMPRESSION: Normal CTA chest examination, without a demonstrated pulmonary embolism or arterial dissection. Stable aneurysmal dilatation of the ascending thoracic aorta. Electronically Signed: Joseluis Alvarez MD at 16:26 EST ,
[2022-08-08 16:01] LABS: CREATININE FINGERSTICK 0.9 mg/dL (0.70-1.30); EGFR FINGERSTICK > 60.0000 mL/min (>60)
[2022-08-08 16:29] LABS: Anion Gap 4 (5-15); BUN 26 mg/dL (7-18); Calcium,Total 9.4 mg/dL (8.5-10.1); Chloride 105 mmol/L (98-107); Creatinine, Serum 1.04 mg/dL (0.70-1.30); EST Glomerular Filtration Rate 76 mL/min (>60); Est Glom Filt Rate - Afr Amer 92 mL/min (>60); Glucose 118 mg/dL (74-106); Potassium 3.5 mmol/L (3.5-5.1); Sodium Level 140 mmol/L (136-145)
== END | disposition home or self-care (01) ==
PROVIDERS: PCP Family Medicine; Referring Provider Internal Medicine Cardiovascular Disease; Visit Provider Internal Medicine Cardiovascular Disease
DX: I71.21 Aneurysm of the ascending aorta, without rupture (principal); K44.9 Diaphragmatic hernia without obstruction or gangrene; I10 Essential (primary) hypertension
CPT/HCPCS: 36415; 71275; 80048; Q9967

== ENCOUNTER → 2022-09-10 | Outpatient (CLI) | payer OTHER, SELFPAY ==
[2022-09-10 09:59] LABS: Absolute Lymphocyte Count 1.77 X10^3/uL (0.83-4.51); Absolute Neutrophil Count 2.8 X10^3/uL (2.0-7.7); Basophil# 0.03 X10^3/uL; Basophil% 0.6 % (0-1); Eosinophil# 0.12 X10^3/uL; Eosinophils% 2.2 % (0-5); Hematocrit 44.5 % (40-54); Hemoglobin 14.4 g/dL (13.0-16.5); Lymphocyte # 1.77 X10^3/ul (0.83-4.51); Lymphocyte % 32.8 % (19-41); Mean Corp Hgb Conc 32.4 g/dL (32-36); Mean Corpuscular Hgb 29.5 pg (27.0-32.0); Mean Corpuscular Volume 91.2 fL (80-94); Mean Platelet Vol. 9.5 fl (6.2-12.0); Monocyte# 0.64 X10^3/uL; Monocyte% 11.9 % (0-10); NRBC Flagged by Analyzer 0 % (0-5); Neutrophil # 2.82 X10^3/uL (2.7-7.7); Neutrophil % 52.3 % (47-70); Platelet Count 262 K/mm3 (150-450); RBC Distribution Width CV 12.8 % (11.6-14.6); RBC Distribution Width SD 42.5 fl (35.1-43.9); Red Blood Count 4.88 M/mm3 (4.6-6.2); White Blood Count 5.4 K/mm3 (4.4-11.0)
[2022-09-10 10:27] LABS: Anion Gap 4 (5-15); BUN 26 mg/dL (7-18); BUN/Creat Ratio 24.3 RATIO (10-20); Calcium,Total 8.7 mg/dL (8.5-10.1); Chloride 109 mmol/L (98-107); Creatinine, Serum 1.07 mg/dL (0.70-1.30); EST Glomerular Filtration Rate 73 mL/min (>60); Est Glom Filt Rate - Afr Amer 89 mL/min (>60); Glucose 106 mg/dL (74-106); Potassium 3.5 mmol/L (3.5-5.1); Sodium Level 141 mmol/L (136-145)
== END | disposition home or self-care (01) ==
LOC: LAB 09:02
PROVIDERS: PCP Family Medicine; Visit Provider Family Medicine
DX: I10 Essential (primary) hypertension (principal); R42 Dizziness and giddiness
CPT/HCPCS: 36415; 80048; 85025

== ENCOUNTER → 2022-11-28 | Outpatient (CLI) | payer OTHER, SELFPAY ==
--- NOTE | 2022-11-28 12:50 | RAD_ITS ---
EXAM: XR LEFT RIBS, 2 VIEWS CLINICAL INDICATION: RIB PAIN RIB PAIN TECHNIQUE: Frontal and oblique views of the left ribs. This report was created using [employer] report generation technology. COMPARISON: CTA chest 08/08/2022. FINDINGS: LUNGS AND PLEURAL SPACES: Unremarkable. No consolidation or edema. No pneumothorax. No effusion. MEDIASTINUM: There is a hiatal hernia. BONES/JOINTS: Unremarkable. No displaced fracture. No sclerotic or destructive changes observed. SOFT TISSUES: Unremarkable. No soft tissue swelling or gas. RAD/Ribs Unil 2V No CXR IMPRESSION: No acute findings in the left ribs. Electronically Signed: Nahum Pena MD at 7:20 EDT Reading Location ID and State: [facility] / [place] , Service support ,
== END | disposition home or self-care (01) ==
LOC: MTRAD 12:48
PROVIDERS: PCP Family Medicine; Referring Provider Family Medicine; Visit Provider Family Medicine
DX: R07.81 Pleurodynia (principal)
CPT/HCPCS: 71100

== ENCOUNTER → 2023-06-09 | Outpatient (CLI) | payer OTHER, SELFPAY ==
[2023-06-09 10:38] LABS: Anion Gap 6 (5-15); BUN 28 mg/dL (7-18); BUN/Creat Ratio 27.5 RATIO (10-20); Calcium,Total 8.9 mg/dL (8.5-10.1); Chloride 110 mmol/L (98-107); Cholesterol 187 mg/dL (200); Creatinine, Serum 1.02 mg/dL (0.70-1.30); EST Glomerular Filtration Rate 77 mL/min (>60); Est Glom Filt Rate - Afr Amer 93 mL/min (>60); Glucose 94 mg/dL (74-106); High Density Lipoprotein 40 mg/dL; PSA,Total - Annual Screen 2.84 ng/mL (0.00-4.00); Potassium 3.6 mmol/L (3.5-5.1); Sodium Level 141 mmol/L (136-145); Triglycerides 111 mg/dL; Very Low Density Lipoprotein 22 mg/dL (5-40)
== END | disposition home or self-care (01) ==
LOC: MTLAB 07:30
PROVIDERS: PCP Family Medicine; Referring Provider Family Medicine; Visit Provider Family Medicine
DX: Z00.00 Encounter for general adult medical examination without abnormal findings (principal)
CPT/HCPCS: 36415; 80048; 80061; 84153; G0103

== ENCOUNTER → 2025-06-12 | Outpatient (CLI) | payer OTHER, SELFPAY | END | disposition home or self-care (01) | LOC: MFPLAB 12:35 | PROVIDERS: PCP Family Medicine; Visit Provider Family Medicine | DX: Z00.00 Encounter for general adult medical examination without abnormal findings (principal) ==

== ENCOUNTER → 2025-06-30 | Outpatient (CLI) | payer OTHER, SELFPAY ==
--- OUTSIDE RECORDS SUMMARY | 2025-06-30 12:27 | XMS RPT_ITS | CCD ---
Author Organization [facility] Inform ion Partnership [facility] Care Team Providers Care Commercial Lines Manager Name Role Phone Gopal Cruz Attending Unavailable Gopal Cruz Primary Care Unavailable Gopal Cruz Attending Unavailable Gopal Cruz Primary Care Unavailable Allergies Allergy Classification Reported Allergen(s) Allergy Type Date of Onset Reaction(s) Facility (3 sources) Lisinopril Drug Allergy 06-25-2021 cough [facility] (1 source) Lisinopril Drug Allergy 06-25-2021 [facility] Repository Medications Current Medications Medication Drug Class(es) Dates Sig (Normalized) Sig (Original) amLODIPine 5 mg oral tablet (6 sources) Dihydropyridine Calcium Channel Kaleb Start: 07-26-20 End: 08-04-20 take 5 mg by mouth once daily Amlodipine Active 5 MG PO DAILY August 04, 2021 7:12pm hydroCHLOROthiazide 25 mg oral tablet (9 sources) Thiazide Diuretic Start: 08-02-20 take 25 mg by mouth once daily Hydrochlorothiazide Active 25 MG PO DAILY August 02, 2021 1:00am Start: 07-26-2021 End: 08-02-2021 take 12.5 mg by mouth once daily Hydrochlorothiazide Discontinued 12.5 MG PO DAILY July 26, 2021 1:00am August 02, 2021 2:33pm Start: 03-07-2020 End: 06-08-2021 take 25 mg by mouth once daily Hydrochlorothiazide Discontinued 25 MG PO DAILY March 07, 2020 12:00am June 08, 2021 4:28pm pantoprazole 40 mg delayed release oral tablet (3 sources) Proton Pump Inhibitor Start: 06-08-2021 take 40 mg by mouth once daily Pantoprazole Active 40 MG PO DAILY June 08, 2021 12:00am Completed/Discontinued Medications Medication Drug Class(es) Dates Sig (Normalized) Sig (Original) acetaminophen 325 mg / HYDROcodone bitartrate 5 mg oral tablet (3 sources) Opioid Agonist Start: 06-14-2021 End: 06-25-2021 take 1 tablet by mouth every six hours Hydrocodone-Acetam inophen Discontinued 1 TABLET PO EVERY 6 HOURS 6 2 June 14, 2021 June 25, 2021 9:06am losartan potassium 100 mg oral tablet (18 sources) Angiotensin 2 Receptor Kaleb Start: 07-26-2021 End: 07-25-2022 take 100 mg by mouth once daily Losartan Discontinued 100 MG PO DAILY August 04, 2021 7:12pm July 25, 2022 3:52pm Start: 06-09-2021 End: 07-26-2021 take 50 mg by mouth once daily Losartan Discontinued 5 0 MG PO DAILY June 09, 2021 11:53am July 26, 2021 6:08pm Start: 06-08-2021 End: 06-09-2021 take 25 mg by mouth once daily Losartan Discontinued 2 5 MG PO DAILY June 08, 2021 4:28pm June 09, 2021 11:54am Start: 05-05-2020 End: 06-08-2021 take 25 mg by mouth once daily Losartan Discontinued 2 5 MG PO DAILY May 05, 2020 12:00am June 08, 2021 4:31pm 24 hr metoprolol succinate 100 mg extended release oral tablet (3 sources) beta-Adrenergic Kaleb Start: 03-07-2020 End: 05-05-2020 take 100 mg by mouth once daily Metoprolol Succinate Discontinued 100 MG PO DAILY March 07, 2020 12:00am May 05, 2020 11:01am naproxen 500 mg oral tablet (3 sources) Nonsteroidal Anti-inflammatory Drug Start: 03-07-2020 End: 05-05-2020 take 500 mg by mouth twice daily Naproxen Discontinued 500 MG PO TWICE A DAY March 07, 2020 12:00am May 05, 2020 11:02am tamsulosin hydrochloride 0.4 mg oral capsule (6 sources) alpha-Adrenergic Kaleb Start: 04-30-2021 End: 06-25-2021 take 1 capsule by mouth at bedtime Tamsulosin (Flomax) 0.4 mg capsule Discontinued 0.4 MG PO AT BEDTIME June 09, 2021 11:53am June 25, 2021 9:06am Problems Problem Classification Problem Date Documented Date Episodic/Chronic Abdominal hernia (6 sources) Umbilical hernia; Translations: [Umbilical hernia without obstruction or gangrene] 08-02-2021 Episodic Aortic; peripheral; and visceral artery aneurysms (3 sources) Aneurysm of thoracic aorta; Translations: [Thoracic aortic aneurysm (TAA)] 08-02-2021 Chronic Cardiac dysrhythmias (3 sources) Cardiac arrhythmia; Translations: [Cardiac arrhythmia, unspecified] 08-02-2021 Chronic Esophageal disorders (3 sources) Gastroesophageal reflux disease; Translations: [Gastro-esophageal reflux disease without esophagitis] 04-30-2021 Chronic Essential hypertension (4 sources) Essential hypertension; Translations: [Essential (primary) hypertension] Onset: 06-27-2025 06-07-2021 Chronic Other lower respiratory disease (3 sources) Dyspnea on exertion; Translations: [Other forms of dyspnea] 06-08-2021 Episodic Syncope (3 sources) Near syncope; Translations: [Syncope and collapse] 08-02-2021 Episodic Results Test Name Value Interpretation Reference Range Facility Absolute lymphocyte countOrd ered By: Dr. Cruz on 09-10-2022 Lymphocytes Auto (Unsp spec) [#/Vol] 1.77 10*3/uL 0.83-4.51 [facility] Basophil percentageOrdered B y: Dr. Cruz on 09-10-2022 Basophils/100 WBC (Bld) 0.6 % 0-1 [facility] Chloride [Moles/Vol] 109 mmol/L 98-107 [facility] Eosinophils/100 WBC (Bld) 2.2 % 0-5 [facility] Glucose [Mass/Vol] 106 mg/dL 74-106 [facility] Comment on above: Fasting Glucose resu lt from 100 to 125 mg/dL suggests IMPAIRED HOMEOSTASIS per A.D.A. criteria. Neutrophils (Bld) [#/Vol] 2.8 10*3/uL 2.0-7.7 [facility] Neutrophils/100 WBC (Bld) 52.3 % 47-70 [facility] Potassium [Moles/Vol] 3.5 mmol/L 3.5-5.1 [facility] Comment on above: Slight Hemolysis, Re sult may be falsely increased. Sodium [Moles/Vol] 141 mmol/L 136-145 [facility] WBC (Bld) [#/Vol] 5.4 10*3/uL 4.4-11.0 [facility] Blood erythrocytes count (nu mber/volume)Ordered By: Dr. Cruz on 09-10-2022 RBC (Bld) [#/Vol] 4.88 10*6/uL 4.6-6.2 [facility] Blood hemoglobin measurement (mass/volume)Ordered By: Dr. Cruz on 09-10-2022 Hemoglobin (Bld) [Mass/Vol] 14.4 g/dL 13.0-16.5 [facility] Blood lymphocytes/100 leukoc ytesOrdered By: Dr. Cruz on 09-10-2022 Lymphocytes/100 WBC (Bld) 32.8 % 19-41 [facility] Blood monocytes/100 leukocyt esOrdered By: Dr. Cruz on 09-10-2022 Monocytes/100 WBC (Bld) 11.9 % 0-10 [facility] Blood platelet mean volumeOr dered By: Dr. Cruz on 09-10-2022 Platelet mean volume (Bld) [Entitic vol] 9.5 fL 6.2-12.0 [facility] Determination of erythrocyte mean corpuscular volume (MCV)Ordered By: Dr. Cruz on 09-10-2022 MCV (RBC) [Entitic vol] 91.2 fL 80-94 [facility] Hematocrit Auto (Bld) [Volum e fraction]Ordered By: Dr. Cruz on 09-10-2022 Hematocrit (Bld) [Volume fraction] 44.5 % 40-54 [facility] Laboratory - Chemistry and C hemistry - challengeOrdered By: Dr. Cruz on 09-10-2022 CO2 [Moles/Vol] 28.0 mmol/L 21.0-32.0 [facility] Urea nitrogen/Creatinine [Mass ratio] 24.3 mg/mg 10-20 [facility] Laboratory - Hematology and Cell countsOrdered By: Dr. Cruz on 09-10-2022 Erythrocyte distribution width (RBC) [Entitic vol] 42.5 fL 35.1-43.9 [facility] Erythrocyte distribution width (RBC) [Ratio] 12.8 % 11.6-14.6 [facility] Immature granulocytes/100 WBC (Bld) 0.200 % 0.0-0.9 [facility] Comment on above: IG% - Immature Granu locytes (promyelocytes, myelocytes and metamyelocytes) > 1% indicates that a LEFT SHIFT is Present. MCH (RBC) [Entitic mass] 29.5 pg 27.0-32.0 [facility] Nucleated RBC/100 WBC (Bld) [Ratio] 0 % 0-5 [facility] MCHC Auto (RBC) [Mass/Vol]Or dered By: Dr. Cruz on 09-10-2022 MCHC (RBC) [Mass/Vol] 32.4 g/dL 32-36 [facility] No Panel InformationOrdered By: Dr. Cruz on 09-10-2022 Estimated GFR (MDRD) Amer 89 mL/min >60 [facility] Comment on above: GFR Calc Estimated GFR (MDRD) Non-Af Amer 73 mL/min >60 [facility] Comment on above: Non- GFR Calc Platelets bldOrdered By: Dr. Cruz on 09-10-2022 Platelets (Bld) [#/Vol] 262 10*3/uL 150-450 [facility] Serum or plasma calcium chriss urement (mass/volume)Ordered By: Dr. Cruz on 09-10-2022 Calcium [Mass/Vol] 8.7 mg/dL 8.5-10.1 [facility] Serum or plasma creatinine m easurement (mass/volume)Ordered By: Dr. Cruz on 09-10-2022 Creatinine [Mass/Vol] 1.07 mg/dL 0.70-1.30 [facility] Comment on above: The validity of the calculated GFR & GFRAA in patients over 70 years has not been determined. Clinical correlation is essential. Serum or plasma urea nitroge n measurement (mass/volume)Ordered By: Dr. Cruz on 09-10-2022 Urea nitrogen [Mass/Vol] 26 mg/dL 7-18 [facility] Thin prep Papanicolaou smear with manual screeningOrdered By: Dr. Cruz on 09-10-2022 Thin prep Papanicolaou smear with manual screening 4 5-15 [facility] Basophil percentageOrdered B y: Dr. Crystal on 08-08-2022 Creatinine [Mass/Vol] 0.9 mg/dL 0.70-1.30 [facility] Chloride [Moles/Vol] 105 mmol/L 98-107 [facility] Glucose [Mass/Vol] 118 mg/dL 74-106 [facility] Comment on above: Fasting Glucose resu lt from 100 to 125 mg/dL suggests IMPAIRED HOMEOSTASIS per A.D.A. criteria. Potassium [Moles/Vol] 3.5 mmol/L 3.5-5.1 [facility] Sodium [Moles/Vol] 140 mmol/L 136-145 [facility] Laboratory - Chemistry and C hemistry - challengeOrdered By: Dr. Crystal on 08-08-2022 CO2 [Moles/Vol] 31.0 mmol/L 21.0-32.0 [facility] Urea nitrogen/Creatinine [Mass ratio] 25.0 mg/mg 10-20 [facility] No Panel InformationOrdered By: Dr. Crystal on 08-08-2022 Bedside Estimated GFR (eGFR) > 60.0000 mL/min >60 [facility] Estimated GFR (MDRD) Amer 92 mL/min >60 [facility] Comment on above: GFR Calc Estimated GFR (MDRD) Non-Af Amer 76 mL/min >60 [facility] Comment on above: Non- GFR Calc Serum or plasma calcium chriss urement (mass/volume)Ordered By: Dr. Crystal on 08-08-2022 Calcium [Mass/Vol] 9.4 mg/dL 8.5-10.1 [facility] Serum or plasma creatinine m easurement (mass/volume)Ordered By: Dr. Crystal on 08-08-2022 Creatinine [Mass/Vol] 1.04 mg/dL 0.70-1.30 [facility] Comment on above: The validity of the calculated GFR & GFRAA in patients over 70 years has not been determined. Clinical correlation is essential. Serum or plasma urea nitroge n measurement (mass/volume)Ordered By: Dr. Crystal on 08-08-2022 Urea nitrogen [Mass/Vol] 26 mg/dL 7-18 [facility] Thin prep Papanicolaou smear with manual screeningOrdered By: Dr. Crystal on 08-08-2022 Thin prep Papanicolaou smear with manual screening 4 5-15 [facility] Encounters Encounter Date Encounter Type Care Provider Facility Start: 06-27-2025 ambulatory [facility] Facility:[facility] Start: 06-23-2025 Encounter for genera l adult medical examination without abnormal findings Gopal [facility] Start: 06-12-2025 End: 06-12-2025 ambulatory [facility] Facility:[facility] Start: 11-28-2022 End: 11-28-2022 ambulatory [facility] Work Phone: Start: 11-28-2022 End: 11-28-2022 [facility] Start: 09-10-2022 End: 09-10-2022 ambulatory [facility] Work Phone: Start: 09-10-2022 End: 09-10-2022 Patient encounter procedure [facility] Start: 08-08-2022 End: 08-08-2022 ambulatory [facility] Work Phone: Start: 08-08-2022 End: 08-08-2022 Patient encounter procedure [facility]Cat [facility], [facility] Start: 06-08-2021 Patient encounter status [facility] Procedures Date Procedure Procedure Detail Performing Clinician Start: 11-28-2022 X-ray of unilateral ribs, two views without x-ray of chest Start: 08-08-2022 CT angiography of ch est with contrast Immunizations Immunization Date Immunization Notes Care Provider Fa cility 11-19-2020 Covid (Pfizer) [facility] 10-29-2020 Covid (Pfizer) [facility] Payers Date Payer Category Payer Self-pay [id number] 2025 Unknown [id number] Medicare MEDICARE PART A B 0 [id number] Medicare MEDICARE A ONLY [id number] Unknown [id number] Unknown [id number] Social History Date Type Detail Facility Start: 06-09-2021 End: 06-09-2021 Tobacco smoking status RIIS Unknown if ever smoked [facility] Start: 1955 Sex Assigned At Male [facility] Medical Equipment Procedure Code Equipment Code Equipment Origin al Text Equipment Identifier Dates MESH,3DMAX XL LE FT [id number] FDA Start: 06-14-2021 MESH,VENTLEX ST MED 6.4CM FDA Start: 06-14-2021 TACKER,SECURE STRAP FDA Start : 06-14-2021 Ligation clip, synthetic polymer, non-bioabsorbable [id number] FDA Start: 06-14-2021 MESH,3DMAX XL LE FT [id number] FDA Start: 06-14-2021 MESH,VENTLEX ST MED 6.4CM FDA Start: 06-14-2021 TACKER,SECURE STRAP FDA Start : 06-14-2021 MESH,3DMAX XL LE FT [id number] FDA Start: 06-14-2021 MESH,VENTLEX ST MED 6.4CM FDA Start: 06-14-2021 TACKER,SECURE STRAP FDA Start : 06-14-2021 Evaluation note Note Date & Type Note Facility Evaluation note No assessment information availa ble [facility] Work Phone: Chief Complaint and Reason for Visit Chief Complaint THORACIC AORTIC ANEU RSM TT/ EORDER LABS Chief Complaint THORACIC AORTIC ANEU RSM TT/ EORDER LABS PAIN IN LEFT RIB Family History No Family History Records Found Relationship Condition Age at Onset Recorded Date/T cruzito daughter Asthma Unknown father Malignant neoplasm Unknown Diabetes mellitus Unknown mother Aortic aneurysm Unknown Advance Directives No Advanced Directives Records Found Advance Directive Response Recorded Date/ Time Living Will No June 09 10:55am Power of Mixing Machine Tender Cork Rod No June 09, 2021 10:55am Advance Directive Response Recorded Date/ Time Living Will No June 09 11:55am Power of Mixing Machine Tender Cork [employer] No June 09, 2021 11:55am Summary Purpose Additional Source Comments Goals (unrecognized section and content) Goals may be documented in a n alternate sectionGoals may be documented in an alternate sectionGoals may be documented in an alternate section Care Teams (unrecognized sec tion and content) Team Status: Active Member Role Status Dates Dr. John Garcia MD Family Provider Active Dr. Gopal Cruz MD Primary Care Provider Active Team Status: Inactive Member Role Status Dates Dr. Gopal Cruz MD Primary Care Provider Active Dr. Jim Crystal MD Attending Provider, Referring Pro vider Active Team Status: Inactive Member Role Status Dates Dr. Gopal Cruz MD Primary Care Provider, Attending Provider Active Team Status: Inactive Member Role Status Dates Dr. Gopal Cruz MD Primary Care Provi christina, Attending Provider, Referring Provider Active (unrecognized sect ion and content) No Status Records Found INFORMATION SOURCE (unrecogn ized section and content) DATE CREATED AUTHOR 06/29/2025 [facility] FOR RECORDS PERTAINING TO PATIENTS WHO ARE OR HAVE BEEN ENROLLED IN A CHEMICAL DEPENDENCY/SUBSTANCEABUSE PROGRAM, SOME INFORMATION MAY BE OMITTED. This clinical summary was aggregated from multiple sources. Caution should be exercised in using it in the provision of clinical care. This summary normalizes information from multiple sources, and as a consequence, information in this document may materially change the coding, format and clinical context of patient data. In addition, data may be omitted in some cases. CLINICAL DECISIONS SHOULD BE BASED ON THE PRIMARY CLINICAL RECORDS. [employer] provides no warranty or guarantee of the accuracy or completeness of information in this document.
[2025-06-30 13:29] LABS: AST(SGOT) 25 U/L (<=37); Alanine Aminotransfer ALT/SGPT 21 U/L (<=46); Albumin, Serum 4.1 g/dL (3.4-4.8); Alkaline Phosphatase 101 U/L (40-129); Anion Gap 10 (5-15); BUN 24 mg/dL (4-19); BUN/Creat Ratio 24.7 RATIO (10-20); Calcium,Total 9.3 mg/dL (7.6-11.0); Carbon Dioxide 22.9 mmol/L (21.0-32.0); Chloride 106 mmol/L (98-108); Cholesterol 187 mg/dL (<=200); Globulin 2.9 g/dL (2.2-4.2); Glucose 100 mg/dL (70-99); Low Density Lipoprotein Calc. 131 mg/dL; PSA,Total - Annual Screen 3.31 ng/mL (0.02-4.00); Potassium 3.8 mmol/L (3.3-5.1); Triglycerides 103 mg/dL; Very Low Density Lipoprotein 21 mg/dL (5-40); cholesterol:hdl ratio screen 5.03
== END | disposition home or self-care (01) ==
LOC: LAB 10:06
PROVIDERS: PCP Family Medicine; Visit Provider Family Medicine
DX: I10 Essential (primary) hypertension (principal)
CPT/HCPCS: 36415; 80053; 80061; 84153; G0103

== ENCOUNTER → 2025-08-14 | Outpatient (CLI) | payer OTHER, SELFPAY ==
--- OUTSIDE RECORDS SUMMARY | 2025-08-14 06:35 | XMS RPT_ITS | CCD ---
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 Role Phone Gopal Mitchell Primary Care Unavailable Gopal Mitchell Attending Unavailable Gopal Mitchell Primary Care Unavailable Gopal Mitchell Attending Unavailable Allergies Allergy Classification Reported Allergen(s) Allergy Type Date of Onset Reaction(s) Facility (3 sources) Lisinopril Drug Allergy 06-25-2021 [facility] (1 source) Lisinopril Drug Allergy 06-25-2021 [facility] Repository Medications Current Medications Medication Drug Class(es) [...] Essential hypertension; Translations: [Essential (primary) hypertension] Onset: 07-01-2025 06-07-2021 Chronic Other lower respiratory disease (3 sources) Dyspnea on exertion; Translations: [Other forms of dyspnea] 06-08-2021 Episodic Syncope (3 sources) Near syncope; Translations: [Syncope and collapse] 08-02-2021 Episodic Results Test Name Value Interpretation Reference Range Facility L509.3001on 07-03-2025 Testosterone [Mass/Vol] 292.00 ng/dL Low 300-720 [facility] Comment on above: Order Comment: PLS A DD TESTOSTERONE TOTAL TO LABS DRAWN 06/30/[address] MITCHELL - EEGG Performed By: #### L 509.3001, L501.9910, L500.4050, L500.4100 #### [facility] [address] [place], [place], [id number] Comprehensive Metabolic Prof ilon 06-30-2025 Albumin [Mass/Vol] 4.1 g/dL Normal 3.4-4.8 [facility] Comment on above: Performed By: #### L 509.3001, L501.9910, L500.4050, L500.4100 #### [facility] [address] [place], [address] Albumin/Globulin [Mass ratio] 1.4 {ratio} Normal 0.9-2.4 [facility] Comment on above: Performed By: #### L 509.3001, L501.9910, L500.4050, L500.4100 #### [facility] [address] [place], [address] ALK PHOS 101 U/L Normal 40-129 [facility] Comment on above: Performed By: #### L 509.3001, L501.9910, L500.4050, L500.4100 #### [facility] [address] [place], [address] ALT [Catalytic activity/Vol] 21 U/L Normal <=46 [facility] Comment on above: Performed By: #### L 509.3001, L501.9910, L500.4050, L500.4100 #### [facility] [address] [place], [address] AST [Catalytic activity/Vol] 25 U/L Normal <=37 [facility] Comment on above: Performed By: #### L 509.3001, L501.9910, L500.4050, L500.4100 #### [facility] [address] [place], [address] Bilirubin [Mass/Vol] 0.71 mg/dL Normal 0.00-1.30 [facility] Comment on above: Performed By: #### L 509.3001, L501.9910, L500.4050, L500.4100 #### [facility] [address] [place], [address] BUN/CRE 24.7 RATIO High 10-20 [facility] Comment on above: Performed By: #### L 509.3001, L501.9910, L500.4050, L500.4100 #### [facility] [address] [place], [address] Calcium [Mass/Vol] 9.3 mg/dL Normal 7.6-11.0 [facility] Comment on above: Performed By: #### L 509.3001, L501.9910, L500.4050, L500.4100 #### [facility] [address] [place], [address] Chloride [Moles/Vol] 106 mmol/L Normal 98-108 [facility] Comment on above: Performed By: #### L 509.3001, L501.9910, L500.4050, L500.4100 #### [facility] [address] [place], [address] CO2 [Moles/Vol] 22.9 mmol/L Normal 21.0-32.0 [facility] Comment on above: Performed By: #### L 509.3001, L501.9910, L500.4050, L500.4100 #### [facility] [address] [place], [address] Creatinine [Mass/Vol] 0.98 mg/dL Normal 0.70-1.20 [facility] Comment on above: Performed By: #### L 509.3001, L501.9910, L500.4050, L500.4100 #### [facility] [address] [place], [address] GAP 10 Normal 5-15 [facility] Comment on above: Performed By: #### L 509.3001, L501.9910, L500.4050, L500.4100 #### [facility] [address] [place], [address] GFR/1.73 sq M.predicted among non-blacks MDRD (S/P/Bld) [Vol rate/Area] 83 mL/min/{1.73_m2} Normal >60 [facility] Comment on above: Result Comment: mL/m in/1.73m2 CKD-EPI Creatinine Equation (2020) Performed By: #### L 509.3001, L501.9910, L500.4050, L500.4100 #### [facility] [address] [place], [address] Globulin (S) [Mass/Vol] 2.9 g/dL Normal 2.2-4.[address] [facility] Comment on above: Performed By: #### L 509.3001, L501.9910, L500.4050, L500.4100 #### [facility] [address] [place], [address] Glucose [Mass/Vol] 100 mg/dL High 70-99 [facility] Comment on above: Performed By: #### L 509.3001, L501.9910, L500.4050, L500.4100 #### [facility] [address] [place], [address] Potassium [Moles/Vol] 3.8 mmol/L Normal 3.3-5.1 [facility] Comment on above: Performed By: #### L 509.3001, L501.9910, L500.4050, L500.4100 #### [facility] [address] [place], [address] Sodium [Moles/Vol] 139 mmol/L Normal 133-145 [facility] Comment on above: Performed By: #### L 509.3001, L501.9910, L500.4050, L500.4100 #### [facility] [address] [place], [address] T PROT 7.1 g/dL Normal 5.9-8.4 [facility] Comment on above: Performed By: #### L 509.3001, L501.9910, L500.4050, L500.4100 #### [facility] [address] [place], [address] Urea nitrogen [Mass/Vol] 24 mg/dL High 4-19 [facility] Comment on above: Performed By: #### L 509.3001, L501.9910, L500.4050, L500.4100 #### [facility] [address] [place], [address] Lipid Profileon 06-30-2025 CHOL:HDL 5.03 Normal [facility] Comment on above: Performed By: #### L 509.3001, L501.9910, L500.4050, L500.4100 #### [facility] [address] [place], [address] Cholesterol [Mass/Vol] 187 mg/dL Normal <=200 [facility] Comment on above: Result Comment: Chol esterol level, Desirable <200 mg/dL Borderline high cholesterol 200-239 mg/dL High cholesterol >=240 mg/dL Recommendations of the NCEP Adult Treatment Panel for the following risk-cutoff thresholds for the [place] population. Performed By: #### L 509.3001, L501.9910, L500.4050, L500.4100 #### [facility] [address] [place], [address] Cholesterol in HDL [Mass/Vol] 37 mg/dL Low [facility] Comment on above: Result Comment: Brunilda onal Cholesterol Education Program (NCEP) guidelines: <40 mg/dL: Low HDL-cholesterol (major risk factor for CHD) >= 60 mg/dL: High HDL-cholesterol (negative risk factor for CHD) HDL-cholesterol is affected by a number of factors, e.g. smoking, exercise, hormones, sex and age. Performed By: #### L 509.3001, L501.9910, L500.4050, L500.4100 #### [facility] [address] [place], [address] Cholesterol in LDL [Mass/Vol] 131 mg/dL Normal [facility] Comment on above: Result Comment: Bord qgzkpe=601-124 mg/dL Higher Kwjx=604 mg/dL or greater Gonzalez Equation 2020 for LDL-C Performed By: #### L 509.3001, L501.9910, L500.4050, L500.4100 #### [facility] [address] [place], [address] Cholesterol in VLDL [Mass/Vol] 21 mg/dL Normal 5-40 [facility] Comment on above: Performed By: #### L 509.3001, L501.9910, L500.4050, L500.4100 #### [facility] [address] [place], [address] Triglyceride [Mass/Vol] 103 mg/dL Normal [facility] Comment on above: Result Comment: The drugs N-Acetylcysteine and Metamizole may falsely depress this assay. Normal range: <150 mg/dL Borderline High: 150-199 mg/dL High: 200-499 mg/dL Very High: >500 mg/dL Performed By: #### L 509.3001, L501.9910, L500.4050, L500.4100 #### [facility] [address] [place], [address] PSA,Total - Annual Screenon 06-30-2025 PSA,TOT SCREEN 3.31 ng/mL Normal 0.02-4.00 [facility] Comment on above: Result Comment: This test was performed using the [email or web address] tPSA method. Measured values of a patient??sample can vary depending on the testing procedure used. PSA values determined on patient samples by different testing procedures cannot be used interchangeably. If there is a change in PSA assays while monitoring therapy, sequential testing should be performed to confirm baseline values. Performed By: #### L 509.3001, L501.9910, L500.4050, L500.4100 #### [facility] [address] [place], [address] Absolute lymphocyte countOrd ered By: Dr. Mitchell on 09-10-2022 Lymphocytes Auto (Unsp spec) [#/Vol] 1.77 10*3/uL 0.83-4.51 [facility] Basophil percentageOrdered B y: Dr. Mitchell on 09-10-2022 Basophils/100 WBC (Bld) 0.6 % 0-1 [facility] Chloride [Moles/Vol] 109 mmol/L 98-107 [facility] Eosinophils/100 WBC (Bld) 2.2 % 0-5 [facility] Glucose [Mass/Vol] 106 mg/dL 74-106 [facility] Comment on above: Fasting Glucose resu lt from 100 to 125 mg/dL suggests IMPAIRED HOMEOSTASIS per A.D.A. criteria. Neutrophils (Bld) [#/Vol] 2.8 10*3/uL 2.0-7.7 [facility] Neutrophils/100 WBC (Bld) 52.3 % 47-70 [facility] Potassium [Moles/Vol] 3.5 mmol/L 3.5-5.1 [facility] Comment on above: Slight Hemolysis, Re sult may be falsely increased. Sodium [Moles/Vol] 141 mmol/L 136-145 [facility] WBC (Bld) [#/Vol] 5.4 10*3/uL 4.4-11.0 [facility] Blood erythrocytes count (nu mber/volume)Ordered By: Dr. Mitchell on 09-10-2022 RBC (Bld) [#/Vol] 4.88 10*6/uL 4.6-6.2 [facility] Blood hemoglobin measurement (mass/volume)Ordered By: Dr. Mitchell on 09-10-2022 Hemoglobin (Bld) [Mass/Vol] 14.4 g/dL 13.0-16.5 [facility] Blood lymphocytes/100 leukoc ytesOrdered By: Dr. Mitchell on 09-10-2022 Lymphocytes/100 WBC (Bld) 32.8 % 19-41 [facility] Blood monocytes/100 leukocyt esOrdered By: Dr. Mitchell on 09-10-2022 Monocytes/100 WBC (Bld) 11.9 % 0-10 [facility] Blood platelet mean volumeOr dered By: Dr. Mitchell on 09-10-2022 Platelet mean volume (Bld) [Entitic vol] 9.5 fL 6.2-12.0 [facility] Determination of erythrocyte mean corpuscular volume (MCV)Ordered By: Dr. Mitchell on 09-10-2022 MCV (RBC) [Entitic vol] 91.2 fL 80-94 [facility] Hematocrit Auto (Bld) [Volum e fraction]Ordered By: Dr. Mitchell on 09-10-2022 Hematocrit (Bld) [Volume fraction] 44.5 % 40-54 [facility] - Chemistry and C hemistry - challengeOrdered By: Dr. Mitchell on 09-10-2022 CO2 [Moles/Vol] 28.0 mmol/L 21.0-32.0 [facility] Urea nitrogen/Creatinine [Mass ratio] 24.3 mg/mg 10-20 [facility] - Hematology and Cell countsOrdered By: Dr. Mitchell on 09-10-2022 Erythrocyte distribution width (RBC) [Entitic vol] 42.5 fL 35.1-43.9 [facility] Erythrocyte distribution width (RBC) [Ratio] 12.8 % 11.6-14.6 [facility] Immature granulocytes/100 WBC (Bld) 0.200 % 0.0-0.9 [facility] Comment on above: IG% - Immature Granu locytes (promyelocytes, myelocytes and metamyelocytes) > 1% indicates that a LEFT SHIFT is Present. MCH (RBC) [Entitic mass] 29.5 pg 27.0-32.0 [facility] Nucleated RBC/100 WBC (Bld) [Ratio] 0 % 0-5 [facility] MCHC Auto (RBC) [Mass/Vol]Or dered By: Dr. Mitchell on 09-10-2022 MCHC (RBC) [Mass/Vol] 32.4 g/dL 32-36 [facility] No Panel InformationOrdered By: Dr. Mitchell on 09-10-2022 Estimated GFR (MDRD) Amer 89 mL/min >60 [facility] Comment on above: GFR Calc Estimated GFR (MDRD) Non-Af Amer 73 mL/min >60 [facility] Comment on above: Non- GFR Calc Platelets bldOrdered By: Dr. Mitchell on 09-10-2022 Platelets (Bld) [#/Vol] 262 10*3/uL 150-450 [facility] Serum or plasma calcium chriss urement (mass/volume)Ordered By: Dr. Mitchell on 09-10-2022 Calcium [Mass/Vol] 8.7 mg/dL 8.5-10.1 [facility] Serum or plasma creatinine m easurement (mass/volume)Ordered By: Dr. Mitchell on 09-10-2022 Creatinine [Mass/Vol] 1.07 mg/dL 0.70-1.30 [facility] Comment on above: The validity of the calculated GFR & GFRAA in patients over 70 years has not been determined. Clinical correlation is essential. Serum or plasma urea nitroge n measurement (mass/volume)Ordered By: Dr. Mitchell on 09-10-2022 Urea nitrogen [Mass/Vol] 26 mg/dL 7-18 [facility] Thin prep Papanicolaou smear with manual screeningOrdered By: Dr. Mitchell on 09-10-2022 Thin prep Papanicolaou smear with manual screening 4 5-15 [facility] Basophil percentageOrdered B y: Dr. Crystal on 08-08-2022 Creatinine [Mass/Vol] 0.9 mg/dL 0.70-1.30 [facility] Chloride [Moles/Vol] 105 mmol/L 98-107 [facility] Glucose [Mass/Vol] 118 mg/dL 74-106 [facility] Comment on above: Fasting Glucose resu lt from 100 to 125 mg/dL suggests IMPAIRED HOMEOSTASIS per A.D.A. criteria. Potassium [Moles/Vol] 3.5 mmol/L 3.5-5.1 [facility] Sodium [Moles/Vol] 140 mmol/L 136-145 [facility] - Chemistry and C hemistry - challengeOrdered By: Dr. Crystal on 08-08-2022 CO2 [Moles/Vol] 31.0 mmol/L 21.0-32.0 [facility] Urea nitrogen/Creatinine [Mass ratio] 25.0 mg/mg 10-20 [facility] No Panel InformationOrdered By: Dr. Crystal on 08-08-2022 Bedside Estimated GFR (eGFR) > 60.0000 mL/min >60 [facility] Estimated GFR (MDRD) Amer 92 mL/min >60 [facility] Comment on above: GFR Calc Estimated GFR (MDRD) Non-Af Amer 76 mL/min >60 [facility] Comment on above: Non- GFR Calc Serum or plasma calcium chriss urement (mass/volume)Ordered By: Dr. Crystal on 08-08-2022 Calcium [Mass/Vol] 9.4 mg/dL 8.5-10.1 [facility] Serum or plasma creatinine m easurement (mass/volume)Ordered By: Dr. Crystal on 08-08-2022 Creatinine [Mass/Vol] 1.04 mg/dL 0.70-1.30 [facility] Comment on above: The validity of the calculated GFR & GFRAA in patients over 70 years has not been determined. Clinical correlation is essential. Serum or plasma urea nitroge n measurement (mass/volume)Ordered By: Dr. Crystal on 08-08-2022 Urea nitrogen [Mass/Vol] 26 mg/dL 7-18 [facility] Thin prep Papanicolaou smear with manual screeningOrdered By: Dr. Crystal on 08-08-2022 Thin prep Papanicolaou smear with manual screening 4 5-15 [facility] Encounters Encounter Date Encounter Type Care Provider Facility Start: 06-30-2025 End: 06-30-2025 ambulatory [facility] Facility:[facility] Start: 06-23-2025 Encounter for genera l adult medical examination without abnormal findings [facility] Start: 06-12-2025 End: 06-12-2025 ambulatory [facility] Facility:[facility] Start: 11-28-2022 End: 11-28-2022 ambulatory [facility] Work Phone: Start: 11-28-2022 End: 11-28-2022 Patient encounter procedure [facility], [place] Start: 09-10-2022 End: 09-10-2022 ambulatory [facility] Work Phone: Start: 09-10-2022 End: 09-10-2022 Patient encounter procedure [facility] Start: 08-08-2022 End: 08-08-2022 ambulatory [facility] Work Phone: Start: 08-08-2022 End: 08-08-2022 Patient encounter procedure [facility], [facility] Start: 06-08-2021 Patient encounter status [facility] Procedures Date Procedure Procedure Detail Performing Clinician Start: 11-28-2022 X-ray of unilateral ribs, two views without x-ray of chest Start: 08-08-2022 CT angiography of ch est with contrast Immunizations Immunization Date Immunization Notes Care Provider Cherelle cisse 11-19-2020 Covid (Pfizer) [facility] 10-29-2020 Covid (Pfizer) [facility] Payers Date Payer Category Payer Self-pay [id number] 2025 Unknown [id number] Medicare MEDICARE PART A B 0 [id number] Medicare MEDICARE A ONLY [id number] Unknown [id number] Unknown [id number] Social History Date Type Detail Facility Start: 06-09-2021 End: 06-09-2021 Tobacco smoking status NHIS Unknown if ever smoked [facility] Start: 1955 Sex Assigned At Male [facility] Medical Equipment Procedure Code Equipment Code Equipment Origin al Text Equipment Identifier Dates MESH,3DMAX XL LE FT [id number] FDA Start: 06-14-2021 MESH,VENTLEX ST MED 6.4CM FDA Start: 06-14-2021 TACKER,SECURE STRAP FDA Start : 06-14-2021 Ligation clip, synthetic polymer, non-bioabsorbable [id number] FDA Start: 06-14-2021 MESH,3DMAX XL LE FT [id number] FDA Start: 06-14-2021 MESH,VENTLEX ST MED 6.4CM FDA Start: 06-14-2021 TACKER,SECURE STRAP FDA Start : 06-14-2021 MESH,3DMAX XL LE FT [id number] FDA Start: 06-14-2021 MESH,VENTLEX ST MED 6.4CM FDA Start: 06-14-2021 TACKER,SECURE STRAP FDA Start : 06-14-2021 Evaluation note Note Date & Type Note Facility Evaluation note No assessment information availa [facility] Work Phone: Chief Complaint and Reason for [...] Will No June 09 10:55am Power of Ruling Technician No June 09, 2021 10:55am Advance Directive Response Recorded Date/ Time Living Will No June 09 11:55am Power of Ruling Technician No June 09, 2021 11:55am Summary Purpose Additional Source Comments Goals (unrecognized section and content) Goals may be documented in a n alternate sectionGoals may be documented in an alternate sectionGoals may be documented in an alternate section Care Teams (unrecognized sec tion and content) Team Status: Active Member Role Status Dates Dr. John Garcia MD Family Provider Active Dr. Gopal Mitchell MD Primary Care Provider Active Team Status: Inactive Member Role Status Dates Dr. Gopal Mitchell MD Primary Care Provider Active Dr. Jim Crystal MD Attending Provider, Referring Pro vider Active Team Status: Inactive Member Role Status Dates Dr. Gopal Mitchell MD Primary Care Provider, Attending Provider Active Team Status: Inactive Member Role Status Dates Dr. Gopal Mitchell MD Primary Care Provi christina, Attending Provider, Referring Provider Active (unrecognized sect ion and content) No Status Records Found INFORMATION SOURCE (unrecogn ized section and content) DATE CREATED AUTHOR 07/05/2025 [facility] FOR RECORDS PERTAINING TO PATIENTS WHO ARE [...] BE BASED ON THE PRIMARY CLINICAL RECORDS. [email or web address] [facility]. provides no warranty or guarantee of the accuracy or completeness of information in this document.
--- NOTE | 2025-08-14 06:36 | CT_ITS ---
PROCEDURE: CTA CHEST W/WO CONTRAST 08/14/2025 REASON FOR EXAM: TAA TECHNIQUE: Procedure Code: [id number] Modality: CT Procedure: CTA CHEST W/WO CONTRAST CTA chest was performed with IV contrast. Multiplanar MIP reconstructions were generated. CONTRAST: Isovue 370 VOLUME: 94 mL One or more dose reduction techniques were used (e.g., Automated exposure control, adjustment of the mA and/or kV according to patient size, use of iterative reconstruction technique). RADIATION DOSE SUMMARY: CTDlvol: 17.10+ 18.05 mGy DLP: 721.18 mGycm COMPARISON: 08/08/2022 FINDINGS: Heart/pericardium: Mild but multivessel calcific coronary atherosclerosis. Aorta: Mild/moderate mostly noncalcific atherosclerosis. Tortuous descending segment. Fusiform ectasia of the ascending aorta to 4.5 x 4.1 cm, tapering through the arch. Proximal descending segment 2.6 x 2.6 cm. Pulmonary arteries: Unremarkable. Lymph nodes: Mildly prominent but nonenlarged mediastinal nodes up to 7 mm short axis in the subcarinal region. Lungs/pleura: Mild atelectasis/scarring. Similar 5 x 3 mm lingular nodule (series 2 image 101).. Airways: Unremarkable. Chest wall: Subcentimeter LEFT lobe thyroid nodule.. Upper abdomen: Moderate hiatal hernia. Musculoskeletal: Mild degenerative findings.. CT/CTA Chest W/WO Contrast IMPRESSION: 1. Fusiform ectasia of the ascending aorta to 4.5 cm. 2. Additional description as above. Reading Location: [id number]
== END | disposition home or self-care (01) ==
LOC: CT 06:33
PROVIDERS: PCP Family Medicine; Referring Provider Internal Medicine Cardiovascular Disease; Visit Provider Internal Medicine Cardiovascular Disease
DX: I71.20 Thoracic aortic aneurysm, without rupture, unspecified (principal)
CPT/HCPCS: 71275; Q9967; A4216